=== PATIENT | female | born 1980 | race Caucasian/White ===

== ENCOUNTER 2016-05-04 10:23 | Inpatient (IN) | payer MEDICAID ==
[~2016-05-04] VITALS: Ht 157.5 cm; Wt 61.4 kg
--- NOTE | ~2016-05-04 | TXPLANREV ---
"PATIENT: RANCHO BROOKS N | | [facility] UNIT #: [id number] | [address] AGE/SEX: 35 F : 80 | [address] | [place] [address] ADMIT/REG DATE: 05/04/16 | ROOM: [facility] LOC: ADTC | ADTC | Treatment Plan/Staffing Review Date: 05/25/16 Treatment plan was reviewed and determined appropriate as written: yes, client is working on feelings letters, is to do more EMDR and will be starting on Relapse packet. Treatment plan was reviewed and the following changes/addition/deletions are necessary: Discharge plans were reviewed and determined appropriate as previously documented: Client was looking at 3 [facility] ([facility], [facility] and the [facility]). She did get interviewed for [facility] and was accepted which was her preferred placement so her referral will be to live at [facility] in and do aftercare counseling and group therapy with us ([facility]) following treatment. Discharge plans were reviewed and determined to be as follows: Other pertinent issues discussed during this staffing review include: Client is making progress, shows strong desire to stay clean/sober. Her S.O. and her are both getting clean/sober together which they both need to focus on their own recovery programs. She could benefit from 2 groups a week to create more structure in her early recovery. Staff Present: Phyllis Parrish, Lois Ford, Sherly Buchanan, Elsi Lugo, Naif Flaherty PRIMARY COUNSELOR: Shasha Fuller Client Signature Counselor Signature Date Time "
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
--- NOTE | ~2016-05-04 | INDIVTXPL2 ---
"PATIENT: RANCHO BROOKS N | | [facility] UNIT #: [id number] | [address] AGE/SEX: 35 F : 80 | [address] | [place] [id number] ADMIT/REG DATE: 05/04/16 | ROOM: [facility] LOC: ADTC | ADTC | Individualized Treatment Plan DATE: 05/11/16 Problem Statement/Issue Identified: Client continues to use alcohol or drugs despite ongoing negative consequences. Goal: Client is to learn about addiction, identifying consequences of her use and work a stronger AA/NA program of recovery. Objectives/Activities to achieve goal: 1. Client is to fill out Getting Started and Step 1 packets, identifying 15 values compromised from addiction. Share with counselor and share selected pages in group. Due Date: 05/20/16 Complete: Incomplete: 2. Client is to get and use a sponsor weekly while in treatment and following. Share progress with counselor. Due Date: ongoing Complete: Incomplete: 3. Client is to attend and share at AA/NA weekly, help chair a meeting and pick a topic that could benefit her. Share progress with counselor. Due Date: ongoing Complete: Incomplete: Client Signature Date Counselor Signaure: Date Outcome/Measurement of Progress Towards Goal: Counselor Signature: Date "
--- NOTE | ~2016-05-04 | INDIVTXPL2 ---
"PATIENT: RANCHO BROOKS | | [facility] UNIT #: [id number] | [address] AGE/SEX: 35 F : 80 | [address] | [place] [address] ADMIT/REG DATE: 05/04/16 | ROOM: [facility] LOC: ADTC | ADTC | Individualized Treatment Plan DATE: 05/19/16 Problem Statement/Issue Identified: Client needs to identify ways to improve self esteem to help maintain exterminator helper termite sobriety from all mood altering substances. Goal: Client is to improve her self-esteem t strengthen her recovery/sobriety. Objectives/Activities to achieve goal: 1. Client is to write down 10-20 good qualities she has and share with counselor. Due Date: 05/28/16 Complete: Incomplete: 2. Client is to interview 7 peers and 3 staff to name 2 good qualities they see in her and she is to write adding these on her list of good qualities. Share with counselor. Due Date: 05/28/16 Complete: Incomplete: Client Signature Date Counselor Signaure: Date Outcome/Measurement of Progress Towards Goal: Counselor Signature: Date "
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
--- NOTE | ~2016-05-04 | INDIVTXPL2 ---
"PATIENT: RANCHO BROOKS N | | [facility] UNIT #: [id number] | [address] AGE/SEX: 35 F : 80 | [address] | [place] [address] ADMIT/REG DATE: 05/04/16 | ROOM: [facility] LOC: ADTC | ADTC | Individualized Treatment Plan DATE: 05/11/16 Problem Statement/Issue Identified: Client is experiencing family & significant other discord and distancing as a result of past alcohol & drug usage. Goal: Client is to learn about effects of addiction on self/family/others and how to build healthier relationships/communication and make ammends with them. Objectives/Activities to achieve goal: 1. Client is to attend Family Educational Program and participate.See family notes. Due Date: 05/18/16 Complete: Incomplete: 2. Client is to write feelings letters to S.O., kids, grandparents, and mom. Share with group/family group. Due Date: 05/25/16 Complete: Incomplete: 3. Client is to have family session to work on family communication/sharing feelings. See Family Note. Due Date: 05/28/16 Complete: Incomplete: Client Signature Date Counselor Signaure: Date Outcome/Measurement of Progress Towards Goal: Counselor Signature: Date "
--- NOTE | ~2016-05-04 | INDIVTXPL2 ---
"PATIENT: RANCHO BROOKS N | | [facility] UNIT #: [id number] | [address] AGE/SEX: 35 F : 80 | [address] | [place] [address] ADMIT/REG DATE: 05/04/16 | ROOM: [facility] LOC: ADTC | ADTC | Individualized Treatment Plan DATE: 05/19/16 Problem Statement/Issue Identified: Client unresolved grief issues contributes to his/her continued drinking and using and needs to address these grief issues to avoid relapse. Goal: Client is to address grief issues to help avoid relapse. Objectives/Activities to achieve goal: 1. Client did attend Grief lecture at 1pm on 05/12/16 with Solution Architect. See class note. Due Date: 05/12/16 Complete: Incomplete: 2. Client is to fill out Grief packet, writing a grief letter to process feelings. Share with counselor. Due Date: 06/01/16 (or in aftercare) Complete: Incomplete: Client Signature Date Counselor Signaure: Date Outcome/Measurement of Progress Towards Goal: Counselor Signature: Date "
--- NOTE | ~2016-05-04 | TXPLANREV ---
"PATIENT: RANCHO BROOKS | | [facility] UNIT #: [id number] | [address] AGE/SEX: 35 F : 80 | [address] | [place] [address] ADMIT/REG DATE: 05/04/16 | [facility] | ADTC | Treatment Plan/Staffing Review Date: 05/19/16 Treatment plan was reviewed and determined appropriate as written: yes, client struggles with focussing on assignments and procrastination. Is to get step 1 done and feelings letters to daughter and S.O. Treatment plan was reviewed and the following changes/addition/deletions are necessary: Discharge plans were reviewed and determined appropriate as previously documented: Discharge plans were reviewed and determined to be as follows: Client discharges on 06/01/16, is [facility] to [facility], but appreciates support of her Fiance so will call the [facility] to see what contact is allowed. Also would consider [facility]. Other pertinent issues discussed during this staffing review include: Client does get involved in groups sharing and is asking to do EMDR on past trauma. Staff Present: Elizabeth Chambers, Phyllis Parrish, Jody Irby, Harriet Kahn, Elsi Lugo PRIMARY COUNSELOR: Shasha Fuller Client Signature Counselor Signature Date Time "
--- NOTE | 2016-05-04 13:47 | NUR ---
ADMISSION NOTE Rights/Responsibilities: Copy given and explained to client. Signed and accepted by client. Client oriented to physical lay out of the ADTC unit, given Big Book and admission packet. A Michele was assigned. Elizabeth Client is a 35yr old female. CSU staff brought her to mo where she has been for the past 5 days. Lives in [place], [place]. DOC meth, last used 04/18/16, gram daily. Allergies: Nubain, Meds: nurse has list. Family participation maybe. Was searched no contraband found. Initial paperwork given and guidelines gone over. Doctor has been notified.
--- NOTE | 2016-05-04 16:00 | NUR ---
RECOVERY 101 1 HR/ Clients learned about Fundamentals of recovery and tools from AA/NA. They participated by sharing what they hear at meetings that are important for their recovery like: working the steps, how to get and use sponsors, reading C.A.L. literature, service work, HP concept, opening up, slogans, using the Serenity Prayer, attending functions, what is closed and open meetings, etc.
--- NOTE | 2016-05-04 16:46 | NUR ---
IS .75 hr/ Did meet with client, oriented her to counseling and went over her initial treatment plan. Client shared she has had bad addiction and has severe mental health issues. She has 4 children, she has custody of 1 but just lost that when CPS stepped in and put her 14 year old daughter in foster home. She said it really upset set her and she used and went to detox, but due to opiates in December/Jan they didn't admit her, she continued to use and was EPC'ed and went to [facility]. She wants help for her addiction. She said she is on meds for hearing voices, depression and she has PTSD also. She has a man she has been in a relationship with for 1 year and he had 3 years clean but she was using and he relapsed 4 months ago. He has 2 days clean more than her currently. He wants to be supportive of her and her getting the kids back so is set up for a drug/alc evaluation. Client was shown the GS packet which is her first assignment.
--- NOTE | 2016-05-04 19:08 | NUR ---
Education 1HR: Clt attended lecture given by counselor on "Communication".
--- NOTE | 2016-05-04 22:42 | NUR ---
Tech note: Client participated in group by playing catch phrase. Client attended an onsite NA meeting. Her S/O came to the meeting. She gave her first intro, was checked her room and saw the DR. ZELAYA: entering treatment
--- NOTE | 2016-05-05 05:09 | NUR ---
Bed note : Client was motionless with eyes closed at all bed checks.
--- NOTE | 2016-05-05 11:30 | NUR ---
GROUP 1.5 HRS. 1:8 Client was oriented to purpose and rules of group. Client shared about past treatment attempts starting as a teenager due to probation. She indicated that she spent 1 1/2 years at [facility] starting with herself and then later moving into [facility] with her kids. She reports she was sober for 6 years at that time. She identified relapse triggers as isolation and pulling away from sponsor and program. She injured her back and was prescribed pain pills. She had also moved back to [place] and resumed using alcohol and marijuana. Group discussion included effects on loved ones and family/kids as well as relapse triggers and prevention.
--- NOTE | 2016-05-05 16:37 | NUR ---
Tech Note: Client watched video The [employer] and is working on Getting Started .
--- NOTE | 2016-05-05 17:17 | NUR ---
FAMILY CONTACT- GOT releases to enrollment counselor of her teenage kids and tried to call, left message asking if they can come to family program and need address.
--- NOTE | 2016-05-05 18:49 | NUR ---
Education: 1 Hour. Client attended presentation given by [facility] AIDS/STDS/HIV. HIV testing was available.
--- NOTE | 2016-05-05 20:17 | NUR ---
Relapse Prevention,04/03 1.0, Client attended and participated in relapse prevention education which focused on internal and external triggers.
--- NOTE | 2016-05-05 23:18 | NUR ---
Tech note: Client participated in rec by playing pictionary. Client went to guided meditation and attended an onsite AA meeting. Her S/O brought in more clothing for her. SE: Seeing an old friend
--- NOTE | 2016-05-06 05:34 | NUR ---
tech note: client was motionless in no distress at all bed checks.
--- NOTE | 2016-05-06 10:22 | NUR ---
Tech Notes: Client is working on Getting started
--- NOTE | 2016-05-06 11:30 | NUR ---
GROUP 1.5 HRS. 1:10 Clients oriented new peer to purpose and rules of group. Peers processed HOW TO GET STARTED IN TREATMENT and STEP 1 ASSIGNMENTS including compromising values and effects on others. This client fell asleep and apologized and stood up as directed. She related to female peer about IV drug use as both are encouraged to look at the similarities, not the differences.
--- NOTE | 2016-05-06 23:31 | NUR ---
Tech note:Client participated in rec-worked on beaded projects SE:PRESTON zhang
--- NOTE | 2016-05-06 23:41 | NUR ---
Education: 1 hour lecture on step 2 & 3 given by counselor
--- NOTE | 2016-05-07 04:41 | NUR ---
Bed note: client was in bed with eyes closed and no distress at all bed checks.
--- NOTE | 2016-05-07 08:55 | NUR ---
Tech Note: Client was redirected to take her medicaton as prescribed. Client stated that she plans to come to the tech station and take her early medication as soon as she wakes from now on.
--- NOTE | 2016-05-07 11:32 | HP ---
ADMIT: 05/04/2016 RM/LOC: [facility] MR#: [id number] [id number] [place], [place] [id number] [address] [place] [address] History and Physical SEX: F AGE: 35 : 1980 DATE OF SERVICE: CHIEF COMPLAINT: Drug addiction with drug use, out of control. CLINICAL HISTORY: The patient is a 35-year-old white female, admitted to the residential care program after being EPC'd from the [facility] to [facility] on 04/20/2016. The patient was high and depressed and was having thoughts of hurting herself. She was EPC'd on 04/20/2016. She then remained at [facility] for two days being transferred on 04/22/2016 to [facility]. She then spent a week at [facility]. On 04/29/2016, she was transferred to the [facility] and has been there for the past 5 days. She is admitted here today for treatment of her stimulant use disorder, severe; opioid use disorder, severe; cannabis use disorder, severe; and alcohol use disorder, mild. The patient has gone through treatment multiple times. She notes that she went to the [facility] program four times between the ages 13 and 16. She also notes that she has been to [facility] on two occasions, the first time in 2003 and the second time in 2011. She notes in 2013, she went to the [facility] in [place], but never finished the treatment program at that time and relapsed immediately. She does note that she did have one extended period of sobriety. She had six years clean from age 19 to 25. She notes that she was clean from 1999 through 2004, but then relapsed and has had no significant sobriety in the last 10 years. The patient notes that her drug of choice is either methamphetamine or cocaine. She notes that she actually prefers cocaine over meth, but cocaine is hard to find in [place]. She does note that she did smoke crack cocaine heavily for a year and a half to two years from age 27 to 28 while living in [place], but after moving back to [place], she has primarily been using methamphetamine because it is easier to get in a lot cheaper. She is a daily meth user, typically using a minimum of gram a day. Will use up to as much as an 8 ball a day if she has it. She prefers to either use it IV, snort it, or eat it. She will also smoke it when she needs to. She is a daily user of meth. Her second drug of choice she notes is opiates, but she has been trying to cut down on her use of opiates because of previous overdoses. She notes that she had a significant cardiopulmonary arrest in March of 2015 and had to be resuscitated. She notes that they use the paddles on her at that time. After overdosing on fentanyl patches, she notes that she would choose the fentanyl patches in ED, the gel off the patches and had a cardiopulmonary arrest. She notes that in the past she was going through as many as over 200 Lortab per month. In addition to the fentanyl patches, she notes she would use almost any opiates she could get off the street. She also was abusing Xanax for a period of time. In addition to her stimulant use and opioid use, she also smokes pot daily. She has been a daily pot user since age 13. Typically, smokes an 8th of an ounce a day. She notes that alcohol is probably her least favorite chemical. She will drink occasionally. Usually, will drink just a few drinks. Does not like to drink to intoxication, but may drink three or four drinks a night. At one time in the past, she did drink daily for a period of time, but currently is only drinking once or twice a month. As noted, she has gone through treatment on several previous occasions. She has had significant ADMIT: 05/04/2016 RM/LOC: A.511 [facility] MR#: [id number] [address] [facility] [address] [place] [id number] [address] [place] [address] History and Physical SEX: F AGE: 35 : 1980 legal problems as a result of her drug use. She has also had significant financial problems and is currently having interaction with CPS over custody of her 14-year-old daughter. She comes to treatment at this time after psychiatric stabilization at [facility]. As noted, she was EPC'd to [facility] on 04/[facility]/2016. PAST MEDICAL HISTORY: Recent hospitalizations. The patient was hospitalized in March of 2015 with opiate overdose. Had to be coded and resuscitated twice. She has had no other recent hospitalizations. She has been hospitalized for the of her four children. They are ages 17, 12, 14, and 10. Those were all normal vaginal deliveries. She does note that she had a tubal ligation at age 26 following the of her youngest child. She also had a lumpectomy for her left breast lump at age 19. She has had no other recent hospitalizations. She was hospitalized at age 26 after she had her initial seizure. She underwent extensive workup for seizure disorder at that time. No other hospitalizations or surgical procedures. CURRENT MEDICATIONS: These are medications that she has primarily been started on since being hospitalized for psychiatric stabilization. Her medications include: 1. Levothyroxine 25 mcg daily. 2. Magnesium oxide 400 mg daily. 3. Celexa 10 mg daily. 4. Potassium 10 mEq one daily. 5. Keppra 500 mg twice a day. 6. Gabapentin 400 mg three times a day. 7. Seroquel 25 mg at noon and 75 mg at bedtime. 8. Prazosin 1 mg at bedtime. 9. Hydroxyzine 50 mg every 6 hours p.r.n. anxiety. ALLERGIES: SHE HAS HAD PREVIOUS REACTION TO NUBAIN. MEDICAL ILLNESSES: Include: 1. History of chronic hepatitis C, diagnosed at age 19, has never been treated, still active. 2. Seizure disorder. 3. Hypothyroidism. 4. Tobacco use disorder in addition to her psychiatric diagnosis, which include bipolar disorder and chronic anxiety disorder. SOCIAL HISTORY: The patient is . She notes her of cancer in October of 2012. She is currently homeless and unemployed. She has no source of income. She has basically been staying with friends going from one drug house to another. She does mention a fiancee or significant other, whom she has been with for period of time. She notes that her 17-year-old and 12- year-old sons live with their paternal grandparents. Her 14-year-old daughter was just placed in Foster Care. Her 10-year-old daughter lives with her father. ADMIT: 05/04/2016 RM/LOC: [facility] MR#: [id number] [address] [id number] [address] [place] [address] History and Physical SEX: F AGE: 35 : 1980 FAMILY HISTORY: The patient notes she never knew her father. Mother will not tell who her father was. He apparently is a drug addict and a drug dealer in [place]. She has two younger half sisters. She notes her mother is a recovered meth addict and alcoholic. She notes that there is a strong history of drug addiction on both sides of her family from what she has been told. REVIEW OF SYSTEMS: CONSTITUTIONAL: No fever. No chills. No change in appetite. Weight is stable. HEENT: Does have some chronic periodontal disease and dental issues. PULMONARY: She is a smoker. Typically smokes at least a pack a day. Does have a chronic cough. CARDIAC: No chest pain or palpitations. GASTROINTESTINAL: History of hep C, untreated. No significant dyspepsia or indigestion. GENITOURINARY: No voiding symptoms. Menses are usually regular. She has had previous tubal ligation. MUSCULOSKELETAL: History of chronic back pain. Has been on chronic pain medications for her back. At one point, was taking both hydrocodone and using fentanyl patches from her family physician. NEUROLOGIC: History of seizure disorder. No recent seizures since being on Keppra. Remainder of her review of systems is negative. PHYSICAL EXAMINATION: VITAL SIGNS: Temp 97.8, pulse 78, respirations 20, and blood pressure 113/79. Height 5 feet 2 inches. Weight is 134 pounds. GENERAL: The patient is a 35-year-old white female, who appears her stated age. She is in no acute distress. She is oriented x3. HEENT: Reveals her ears to be clear. Pupils are equal and reactive. Sclerae nonicteric. Conjunctivae noninflamed. Oropharynx normal. Dentition is in poor repair. NECK: Supple. Thyroid not enlarged. No cervical adenopathy. LUNGS: At this time are clear. HEART: Regular rhythm without murmur. ABDOMEN: Soft and nontender. No masses or organomegaly. PELVIC: Not performed. BREASTS: Not performed. EXTREMITIES: Normal to gross exam. No peripheral edema. No clubbing or cyanosis. Full range of motion and mobility. NEUROLOGIC: She is intact with no focal deficit. Her balance and gait are normal. MENTAL STATUS EXAMINATION: She is pleasant and cooperative. Affect is appropriate. She has no bizarre ideation. She does admit to hallucination and hearing voices. She has had difficulty with psychosis in the past related to her heavy meth use. Does admit to recent suicidal ideation, but denies any suicidal thoughts now. Denies any significant depressive symptoms. She is ADMIT: 05/04/2016 RM/LOC: A.511 [facility] MR#: [id number] [address] [address] [address], [place] [address] History and Physical SEX: F AGE: 35 : 1980 oriented x3. Her memory appears to be intact. She is of average intelligence. Her insight is limited. Judgment is guarded. ASSESSMENT AT THE TIME OF ADMISSION: 1. Stimulant/methamphetamine/cocaine use disorder, severe. 2. Opioid use disorder, severe. 3. Cannabis use disorder, severe. 4. Tobacco use disorder, moderate. 5. Alcohol use disorder, mild. 6. Bipolar disorder. 7. Chronic anxiety disorder. 8. Chronic hepatitis C untreated. 9. Seizure disorder. PLAN: Plan is to admit the patient to the residential care program with a tentative discharge date of 06/01/2016. Upon completion of treatment, the patient needs to go to a [facility]. Will need the structure and support of a sober living community if she is going to maintain long-term sobriety. Raul Colon MD/ esthela JOB #: [id number] CC: Raul Colon, Attending Physician FAMILY PHYSICIAN, Family Physician
--- NOTE | 2016-05-07 11:39 | NUR ---
Medication Note: Client c/o pain in both knees rated at 5, prn ibuprphen administered.
--- NOTE | 2016-05-07 11:49 | NUR ---
Group 1.5hrs 1:10 Two new clients were orientated about group goals and rules. Feelings letters were shared and feedback was given by peers. Client shared about her experience in previous treatments. Student- Ida Suh
--- NOTE | 2016-05-07 14:21 | NUR ---
Education 1 Hour: Client heard a presentation on, "Marijuana."
--- NOTE | 2016-05-07 15:17 | NUR ---
Tech Note: Client participated in Spiritual Enrichment in the morning and walked in the halls for afternnon exercise. Client stated that she is working on, "How to Get Started in Treatment."
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
--- NOTE | 2016-05-07 16:42 | NUR ---
Education: 1hr Participated in Step 2 work group. Very involved in the group discussion.
--- NOTE | 2016-05-07 23:06 | NUR ---
Tech Note: Client participated in rec and attended A.A.Meeting.
--- NOTE | 2016-05-07 23:23 | NUR ---
Education Note: Client watched the healthy families video which lasted an hour.
--- NOTE | 2016-05-08 04:49 | NUR ---
Bed note: Client was in bed with eyes closed and no distress at all bed checks
--- NOTE | 2016-05-08 11:30 | NUR ---
Group 1.5hr/ 11:1 Clients all were attentive as peers shared GS packets and some shared how they relate. This client did give feedback and relate.
--- NOTE | 2016-05-08 14:35 | NUR ---
PEER REVIEWS 1 HR: Clt participated in peer review process and was able to give open and honest feedback to those receiving a review.
--- NOTE | 2016-05-08 16:33 | NUR ---
Tech Note: Client watched a video "How to Sabotage Your Treatment" and is working on Getting Started.
--- NOTE | 2016-05-08 23:55 | NUR ---
TECH NOTE: Client participated in guideline reading, watched tv/movies and attended optional off site AA meeting. Asked male peer to make phone call for her. SE:group
--- NOTE | 2016-05-09 04:48 | NUR ---
BED NOTE: Client was in bed, motionless with eyes closed all three bed checks.
--- NOTE | 2016-05-09 13:01 | NUR ---
Client was observed crying prior to an 11:30 Peer Review. Client asked tech to be excused and she was told to go to her room and she would be taken to lunch at 12:00. Tech did notify the Wednesday counselor and this decision was agreed with.
--- NOTE | 2016-05-09 16:24 | NUR ---
Tech Note: Client went to AA mtg at [facility] and [facility]. Is working on Getting Started. Client had visitors.
--- NOTE | 2016-05-09 20:06 | NUR ---
TECH NOTE: Client played Catch Phrase for REC, attended off site AA meeting, watched TV/movies SE: visitors
--- NOTE | 2016-05-10 04:50 | NUR ---
Bed Note: Clt lay motionless in bed with eyes closed showing no distress at all bed checks.
--- NOTE | 2016-05-10 09:38 | NUR ---
Tech Note: Client filled out Self-Care Checklist on Wednesday evening c/o hearing voices and requesting a higher dose of Zyprexa (currently on 5mg.). On Wednesday, at [facility], the client again c/o hearing voices and stated that she didn't think she could wait until Wednesday to see the nurse. Tech called nurse at 0930 with complaint. Nurse asked what voices were telling the client. Client claims that voices are telling her that she is "a piece of shit" and that she needs to leave treatment. Nurse directed tech to go over coping skills, with client, and report back in a few hours.
--- NOTE | 2016-05-10 11:17 | NUR ---
Tech Note: This tech sat down with clt at 1045 and we talked about coping skills for her anxiety. She said that she was practicing breathing techniques and talking to peers because if her mind is occupied she doesn't notice the voices as much. She agreed to continue using the coping skills but still wants to talk to medical personnel about increasing her Zyprexa. Clt also stated that the voices are NOT telling her to leave treatment.
--- NOTE | 2016-05-10 16:11 | NUR ---
Tech Note: Client participated in Big Book Study. Client stated that she is working on, "How to Get Started in Treatment." Client received a visitor.
--- NOTE | 2016-05-10 22:54 | NUR ---
TECH NOTE: Client attended AA panel, participated in community clean and watched tv/movies. in room in bed with lights out at shift change SE: visits
--- NOTE | 2016-05-11 04:25 | NUR ---
Bed Note: Clt lay motionless in bed with eyes closed showing no distress at all bed checks.
--- NOTE | 2016-05-11 10:18 | NUR ---
Tech notes: Client is working on BB
--- NOTE | 2016-05-11 11:30 | NUR ---
Morning Group, 03/25 ratio, 1.0 hours, Client attended and actively participated in group therapy. Client shared her step 1 along with how she felt about being in treatment and needing to be serious about her recovery.
--- NOTE | 2016-05-11 12:44 | NUR ---
Education Note: Client attended educational speaker Kit on Crossaddiction.
--- NOTE | 2016-05-11 14:00 | NUR ---
BIG GRP 5:21/ We had a big grp to confront sleeping pills being on the unit, dishonesties, and anything else going on that needed to be addressed. This client was attentive and did own that she made real coffee when found it in the kitchen.
--- NOTE | 2016-05-11 16:00 | NUR ---
RECOVERY 101 1 HR/ Clients all brought big books, were given highlighters and shown tools they can use in the big Book on: acceptance, 1/2measures, 12 promises, living in the solution-not the problem, resentments, 2 week prayer to forgiveness, etc. Clients took turns reading and some commented and asked questions.
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
--- NOTE | 2016-05-11 16:03 | NUR ---
FAMILY NOTE- DID call her S.O. and is to come to family program 05/14, he is attending meetings for himself. Will have family session 4:15pm 05/14.
--- NOTE | 2016-05-11 17:23 | NUR ---
IS 1 hr/ Did go over rest of her BPS and set up treatment planning for her. She was given step 1 to start on, did go over her GS packet and she is to share it in group. Client loved having visit with her daughter and wishes her kids could come to family program. Did call her S.O. and he plans to be here this , could bring grandma or sons if they can go. Her kids are all over age 12. Client talked about the med she is on she was on before only she is currently on a much lower dose so is starting to hear voices that interfere in her ability to focus, plus voices are negative/hurt her self-esteem. Did e-mail the nurse.
--- NOTE | 2016-05-11 18:22 | NUR ---
med note: client complained of headache pain level 6. motrin was given
--- NOTE | 2016-05-11 20:35 | NUR ---
Education: 1 hour lecture on feelings given by counselor
--- NOTE | 2016-05-11 23:46 | NUR ---
Tech Note: Client played a game for rec, and attended N.A.Meeting. SE: Her Fiance came for the N.A.Meeting
--- NOTE | 2016-05-12 04:02 | NUR ---
bed note: client was in bed with eyes closed and no distress at all bed checks.
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
--- NOTE | 2016-05-12 15:16 | NUR ---
Education Note: Client heard a presentation on, "Grief."
--- NOTE | 2016-05-12 16:29 | NUR ---
Tech Note: Client particiapted in light stretching for morning exercise and walked in the halls in the afternoon. Client stated that she is working on writing Feelings Letters and Step One.
--- NOTE | 2016-05-13 00:07 | NUR ---
Education: 1 hour lecture given by Counselor on Step 1
--- NOTE | 2016-05-13 00:23 | NUR ---
Tech note: client worked on projects for the alumni jose j for rec and attended AA meeting SE: Sharing in group
--- NOTE | 2016-05-13 04:17 | NUR ---
Bed Note: Clt lay motionless in bed with eyes closed showing no distress at all bed checks.
--- NOTE | 2016-05-13 10:31 | NUR ---
Tech Notes: Client is working on Step 1 and Fl's.
--- NOTE | 2016-05-13 13:03 | NUR ---
Group 1.5hours 1:11 Client brought up the topic of resentment for discussion. Client shared how she was having issues with resentments with her mother and the lack of relationship they have had throughout her life. Client shared how she was struggling to find a way to let go of her resentments toward her mother for the sake of her child. Student: Ida Buchanan BS [facility]
--- NOTE | 2016-05-13 19:24 | NUR ---
TECH NOTE: client c/o cold symptoms @ 1923,she was give a cough drop,tessalon perles & motrin 400 mg.
--- NOTE | 2016-05-13 23:16 | NUR ---
tech note: Client played a game for recreation & attended onsite NA meeting. Client left the NA meeting @ 2030 & came to the tech station complaining how hot the room was & she felt like she was having an anxiety attack. She talked briefly with the tech. It was suggested she get some ice water & go back to the meeting which she did. She later told tech that she got felt better after drinking some cold water. Client refused new med that was ordered for her until the RN explains to her why she needs to be on it. Client was complimented by peer for her sharing. SE: Group.
--- NOTE | 2016-05-14 02:19 | NUR ---
Education: 1 Hour. Client attended "Unresolved Anger" video & discussion presented by staff.
--- NOTE | 2016-05-14 04:59 | NUR ---
BED NOTE: Client was in bed motionless with eyes closed all three bed checks.
--- NOTE | 2016-05-14 11:30 | NUR ---
AM GRP 1.5 HRS, Ratio 1:12/ Clt offered lots of feedback to peers who were sharing about issues. She could relate to many and had to be asked to allow someone to speak at one point. Clt got up at 11, stating she had to go to the bathroom very badly and walked out of grp.
--- NOTE | 2016-05-14 12:55 | NUR ---
Tech Note: Client participated in Spiritual Enrichment. Client stated that she is working on Step One and writing Feelings Letters.
--- NOTE | 2016-05-14 13:09 | NUR ---
Education 1 Hour: Client heard a presentation from a member of the recovery community, who shared his experience, strength and hope.
--- NOTE | 2016-05-14 16:48 | NUR ---
FAMILY EDUCATION 3 HRS. Client was accompanied by her fiance. They took part in the discussion on the disease concept. Client shared chemical history and the consequences. Fiance identified himself as an addict also and has been clean 2 days longer than client. They were both tearful at times and shared about violence and client hearing voices.
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
--- NOTE | 2016-05-14 20:22 | NUR ---
Education 1HR: Clt watched video by Johnnie Arevalo on Step 5.
--- NOTE | 2016-05-14 22:38 | NUR ---
TECH NOTE: Client played Catch Phrase for REC, participated in Guided Meditation and attended onsite AA meeting. Was upset that a visitor came to the AA meeting because she does not like them SE: shared in AA
--- NOTE | 2016-05-15 04:28 | NUR ---
Bed Note: Clt lay motionless in bed with eyes closed showing no distress at all bed checks.
--- NOTE | 2016-05-15 10:52 | NUR ---
Tech Note: Client c/o stimuli that she felt could cause her to have a seizure. She mentioned lights being the most likely to trigger. Client was allowed to lay down in her room. After speaking with Nailer Hand (MARIE), I went to Family Practice and spoke to Dr. Cele Colon about client. Dr. Colon increased client's dosage of Keppra from 500 mg. BID to 1000 mg. BID. At 1050 hours I gave client a 500 mg dosage to bring total to 1000 mg. She will take again at 2100 hours.
--- NOTE | 2016-05-15 13:00 | NUR ---
PEER REVIEWS 1.25 HRS: Clt participated in peer reviews and took a risk to give open and honest feedback to those receiving a review.
--- NOTE | 2016-05-15 15:52 | NUR ---
Tech Note: Client watched a video "It Can't Happen To Me" and is working on Step 1 and Feelings Letters.
--- NOTE | 2016-05-15 22:45 | NUR ---
Tech note : Client watched tv, played games and talked on the phone. SE; Phone calls
--- NOTE | 2016-05-16 05:01 | NUR ---
Bed note: Client was in bed with eyes closed and no distress at all bed checks.
--- NOTE | 2016-05-16 15:15 | NUR ---
Tech Note: Client attended N.A.Panel and is working on FL's, and Big book.
--- NOTE | 2016-05-16 15:38 | NUR ---
Tech Note: Client attended N.A.Panel and is working on Step 1
--- NOTE | 2016-05-16 20:46 | NUR ---
tech note: client played game for recreation & attended offsite AA meeting. Client was late for recreation-walked past tech station @ 1841. Tech redirected her that she was late for recreation. Client talked on the phone & watched tv. SE: family.
--- NOTE | 2016-05-16 22:04 | NUR ---
tech note: client c/o achiness level 6 pain @ 2204,motrin 400 mg given.
--- NOTE | 2016-05-17 13:00 | NUR ---
PEER REVIEWS 1.25 HRS: Clt participated in peer reviews and took a risk to give open and honest feedback to those receiving a review.
--- NOTE | 2016-05-17 16:04 | NUR ---
Tech Note: Client is working on Step1 and FL's. She had a visitors.
--- NOTE | 2016-05-17 22:22 | NUR ---
Tech note: Participated in community clean, attended AA panel with Shaka Cortés and went to an onsite SHIP PILOT meeting. SE; Talk with son
--- NOTE | 2016-05-18 04:59 | NUR ---
Bed note: Client was in bed with eyes closed and no distress at all bed checks.
--- NOTE | 2016-05-18 11:30 | NUR ---
Experiential Group 1.5hr/ Clients all participated in Family Sculpturing by role-playing, relating and giving feedback. This client was involved and attentive.
--- NOTE | 2016-05-18 13:27 | NUR ---
Education note: Client attended education speaker Geeta on Tobacco.
--- NOTE | 2016-05-18 13:27 | NUR ---
Education note: Client attended education speaker Geeta on Tobacco.
--- NOTE | 2016-05-18 14:19 | NUR ---
Tech Note: client is working on Step 1 and Fl's.
--- NOTE | 2016-05-18 18:04 | NUR ---
Education: 1 Hour. Client attended "Forgiveness" lecture presented by staff.
--- NOTE | 2016-05-18 20:30 | NUR ---
FAMILY GROUP 6:1/ HR: Client, peers and attending family members heard one young female IOP client process FEELINGS LETTERS to each of her parents. The letters were well written and appeared to be sincere. Several peers related and shared specifics from their own experience. There were two moms here to support their children who also provided feedback. This client attended with her Significant Other who was very active in the group, talking about his own addiction and his own family who are still in active addiction. Client did share some about her children and efforts to get them back.
--- NOTE | 2016-05-18 23:16 | NUR ---
tech note: client attended Family Session. Client asked tech if her S/O could stay for awhile after they got out of Family-tech told her it would be ok. SE: Family.
--- NOTE | 2016-05-19 04:35 | NUR ---
tech note: client was motinless in no distress at all bed checks.
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
--- NOTE | 2016-05-19 14:00 | NUR ---
FAMILY EDUCATION 3 HRS Client attended family group with her SO. Client's SO shared his concern on how to handle a situation when it is getting out of control. Client shared that she did not have a very healthy relationship with her mother. Student: Ida Suh
--- NOTE | 2016-05-19 15:19 | NUR ---
IS 1 hr/ Client did have first 3 pages of step 1 done but is to get page 10-11 done soon so can write feelings letters by Wednesday to get feedback and to share Wednesday with family. She is to complete rest of step 1 after pg 10 -11 done and letters done. She will be required to miss recreation and spend time in Chap during study time/recreation time. Client admits she procrastinates and is distracted. She did report her meds were adjusted that she is no longer bothered by hearing voices. Client asked to do EMDR today but was told get step 1 done and letters, the will start EMDR. Did discuss other treatment planning.
--- NOTE | 2016-05-19 15:38 | NUR ---
Tech Note: Client attended programming on Relapse Prevention and is working on Feelings Letters and Step 1.
--- NOTE | 2016-05-19 16:28 | NUR ---
Relapse Prevention, 04/06 ration, 1.0 hours, Client attended and participated in relapse prevention education which focused on relapse triggers/issues.
--- NOTE | 2016-05-19 22:24 | NUR ---
TECH NOTE: Client attended Alumni meeting and on-site AA meeting. SE: AA meeting
--- NOTE | 2016-05-19 22:56 | NUR ---
EDUCATION NOTE: 1HR lecture on Shame given by counselor
--- NOTE | 2016-05-20 04:44 | NUR ---
Bed note: Client was in bed with eyes closed and no distress at all bed checks.
--- NOTE | 2016-05-20 10:08 | NUR ---
Tech note: Client is working on Step 1 and Fl's
--- NOTE | 2016-05-20 11:32 | NUR ---
RES GROUP 1.5 HRS. RATIO 03/24. Topics today were assignments shared, addiction itself, craving, and spirituality. This client shared her Step One and did a good job, being very tearful when sharing the things she had done in her addiction.
--- NOTE | 2016-05-20 12:46 | NUR ---
Education note: Client attended speaker Tono Barbosa
--- NOTE | 2016-05-20 16:02 | NUR ---
SPIRITUAL EDUCATION 1 HR. Topic today was on how addiction is a disease of body mind and spirit and how the Steps fit in treating the SPIRIT. We also talked about ways to spirituality, payoffs, and how spirituality is related to both addiction and recovery.
--- NOTE | 2016-05-20 18:17 | NUR ---
Education: 1 Hour. Client attended "Boundaries" lecture presented by staff.
--- NOTE | 2016-05-20 22:17 | NUR ---
Tech note : Client was instructed by counselor to work on step 1 instead of participating in rec. She attended an onsite NA meeting, her S/O was also there. SE: Finding out her S/O was not going to senior care.
--- NOTE | 2016-05-21 05:19 | NUR ---
tech note: client was motionless in no distress at all bed checks.
--- NOTE | 2016-05-21 11:42 | NUR ---
Group 1.5 Hr Ratio 1:9/Topics today were feelings letters and an anger and hurt assignment. A client also shared how her just say no assignment went Client shared a feelings letter to her daughter and did a good job. Client also shared how she could relate to peers sharing assignments.
--- NOTE | 2016-05-21 15:51 | NUR ---
Tech Note: Client went for an outdoor walk in the afternoon. Client stated that she is working on writing Feelings Letters and writing positive traits about herself.
--- NOTE | 2016-05-21 16:34 | NUR ---
Education 1 Hour: Client heard a presentaion on "Wellness in Recovery."
--- NOTE | 2016-05-21 16:55 | NUR ---
FAMILY EDUCATION 3 HRS Client attended family group and was joined by her daughter and visitation supervisor show operations. Client's daughter shared about how she wished her mother had tried to get help before she lost custody and that she was afraid of her mother dying. Client's daughter also shared how she feared ending up just like her mother. Student: Ida Suh
--- NOTE | 2016-05-21 23:07 | NUR ---
Tech note: Client worked on craft projects for the [employer] for rec and attended AA meeting SE:family
--- NOTE | 2016-05-22 00:11 | NUR ---
Education note: Clients watched a movie on "my attitude' by Kenneth Arce.
--- NOTE | 2016-05-22 04:54 | NUR ---
Bed note; client was motionlees, with eyes closed at all bed checks.
--- NOTE | 2016-05-22 14:15 | NUR ---
IS 1.25 hr/ Did orient to EMDR and saw video. Then did do EMDR relaxation. Did sign releases for [facility] and will set up interview Wednesday for [facility], client is to fill out applications for [facility] and [facility]. She is willing to do whatever is open, now that she knows can [facility].
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
--- NOTE | 2016-05-22 16:27 | NUR ---
Tech Note: Client went with group for outside walk and watched "Marijuana", by Orlando Arce, for education. Clt is working on Feelings Letters.
--- NOTE | 2016-05-22 23:49 | NUR ---
Tech Note: Client read guidelines with peers. Client attended A.A. SE: Meeting with counselor
--- NOTE | 2016-05-23 05:34 | NUR ---
Bed Note: Client was motionless with eyes closed at all bed checks.
--- NOTE | 2016-05-23 15:47 | NUR ---
Tech Note: Client working on Feelings Letters and had visitors.
--- NOTE | 2016-05-23 20:34 | NUR ---
Tech Note: Client played a game for rec. They also attended the A.A.Meeting at [facility] and [place]. SE: Visitation
--- NOTE | 2016-05-24 05:31 | NUR ---
Bed Note: Client was motionless with eyes closed at all bed checks.
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
--- NOTE | 2016-05-24 23:34 | NUR ---
Client attended A.A.Panel and helped with community clean. She had phone interview with the [facility] and was accepted. SE: Mallorie
--- NOTE | 2016-05-25 05:03 | NUR ---
Bed Note: Client was motionless with eyes closed at all bed checks.
--- NOTE | 2016-05-25 10:12 | NUR ---
Tech note: Client is working on Fl's
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
--- NOTE | 2016-05-25 14:38 | NUR ---
Education note: Client attended speaker for education Aldo Garcia
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
--- NOTE | 2016-05-25 17:00 | NUR ---
FAMILY EDUCATION 1 HR. Client's daughter arrived at 3 PM, after the FAMILY TRAP video. Client assisted her daughter in identifying family roles. Client and daughter then had family session with primary counselor as daughter is unable to stay for group.
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
--- NOTE | 2016-05-25 22:42 | NUR ---
TECH NOTE: Client participated in family. SE: family
--- NOTE | 2016-05-25 23:51 | NUR ---
tech note: Client c/o cold & flu symptoms @ 2104,motrin 400 mg & mucinex were given.
--- NOTE | 2016-05-25 23:58 | NUR ---
Education: 1 Hour. Client attended "Adult Children" presentation given by staff.
--- NOTE | 2016-05-26 05:24 | NUR ---
BED NOTE: Client was in bed, motionless with eyes closed all three bed checks.
--- NOTE | 2016-05-26 17:55 | NUR ---
Tech Note: Clt spent day in room, sick. Checked on 5 times. Meds taken, food brought and she felt better at days end.
--- NOTE | 2016-05-26 23:37 | NUR ---
Tech note: Client was in room all day
--- NOTE | 2016-05-27 04:14 | NUR ---
BED NOTE: Client was in bed, motionless with eyes closed all three bed checks.
--- NOTE | 2016-05-27 10:56 | NUR ---
Tech note: Client is working on Fl's
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
--- NOTE | 2016-05-27 13:15 | NUR ---
Education note: Client attended speaker Charly for education today.
--- NOTE | 2016-05-27 18:33 | NUR ---
SPIRITUaL EDUCATION 1 HR. Today we discussed difference between spirituality and jew, and then played a spiritual challenge game where group discussed thought provoking questions on spirituality and the meaning.
--- NOTE | 2016-05-27 22:42 | NUR ---
EDUCATION NOTE: 1 HR Counselor gave a lecture on Disease Concept
--- NOTE | 2016-05-27 23:50 | NUR ---
tech note: client played Pictionary for recreation & attended onsite NA mtg. Client's S/O was at the NA meeting. After the NA meeting client and her S/O were standing in the hallway and were redirected for inappropriate kissing and touching. Client was redirected twice by tech for inappropriate language. SE: EMDR.
--- NOTE | 2016-05-28 04:13 | NUR ---
BED NOTE: Client was in bed, motionless with eyes closed all three bed checks.
--- NOTE | 2016-05-28 08:40 | NUR ---
Medication Note: Client took mucinex andd ibuprophen for boody aches rated at 4.
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
--- NOTE | 2016-05-28 15:43 | NUR ---
Tech Note: Client participated in Spiritual Enrichment in the morning and went for an outdoor walk in the afternoon. Client stated that she is working on writing Feelings Letters and reading the Big Book.
--- NOTE | 2016-05-28 16:35 | NUR ---
Step ed./1 hr/ Focus was on step 7 "Humbly asked him to remove our shortcomings". Had them complete some questions on paper then discussed. This client participated.
--- NOTE | 2016-05-28 22:08 | NUR ---
EDUCATION NOTE 1HR: Recovery committee presented information on recovery
--- NOTE | 2016-05-28 22:12 | NUR ---
EDUCATION NOTE 1HR: Clients watched Orlando Arce video on Behavior
--- NOTE | 2016-05-28 22:40 | NUR ---
TECH NOTE: Client helped by doing crafts for the dance for REC, and attended AA meeting.
--- NOTE | 2016-05-29 04:41 | NUR ---
Bed note: client was in bed moitionless with eyes closed and no distress at all bed checks.
--- NOTE | 2016-05-29 12:51 | NUR ---
Group 1.5 Hr Ratio 1:11/Topics today were orientating a new member to group rules and goals and a couple getting started packets. Client shared how she could relate to what peers were sharing from assignments and issues.
--- NOTE | 2016-05-29 15:53 | NUR ---
PEER REVIEWS 1.25 HRS: Clt participated in peer reviews and took a risk to give open and honest feedback to those receiving a review. Client also had a review done on herself, client heard she needs to let her gaurd down, needs to focus on herself and not her fiance, that she worries about others instead of herself, needs to forgive herself, needs to work on past trauma. Client shared she felt glad, sad and afraid.
--- NOTE | 2016-05-29 16:16 | NUR ---
Tech Note: Client watched video (The Enablers) and is working on the Big Book and Feelings Letters.
--- NOTE | 2016-05-29 22:24 | NUR ---
Tech Note : Client worked crafts and projects for the dance. Client watched TV.
--- NOTE | 2016-05-30 04:38 | NUR ---
Bed note: Client was in bed with eyes closed and no distress at all bed checks.
--- NOTE | 2016-05-30 17:57 | NUR ---
Tech Note: Client attended N.A. Panel and is working on BB. Client had vist.
--- NOTE | 2016-05-30 19:11 | NUR ---
tech note: client attended offsite Alumni Dance.
--- NOTE | 2016-05-31 04:55 | NUR ---
BED NOTE: Client was in bed, motionless with eyes closed all three bed checks.
--- NOTE | 2016-05-31 16:59 | NUR ---
Tech Note: Client participated in Big Book Study in the morning and went for a walk in the afternoon. Client stated that she is working on reading the Big Book. Client received visitors.
--- NOTE | 2016-05-31 23:30 | NUR ---
tech note: Client attended AA Panel,ELEMENTARY EDUCATOR & participated in Community Clean. Client was redirected for being in the front lobby before the ELEMENTARY EDUCATOR meeting started. SE: DALI.
--- NOTE | 2016-06-01 04:24 | NUR ---
bed note: client was in bed with eyes closed and no distress at all bed checks.
--- NOTE | 2016-06-01 09:30 | NUR ---
IS 1 hr/ Client did do survey last week, did go over top 8 relapse triggers with counselor and will plan to finish the Relapse packet to go over with her aftercare counselor. She did write 2 feelings letters but still needs to write one to grandparents, plus may need to work on Vent letter and/or resentments with mother and sister and step-dad. Client asked to find help with rent $ and she was given # to [facility] and is to go to [facility]. She said her car doesn't work, she won't have $ for food first couple weeks, etc. 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 Did fill out her Continued Care Plan and gave her a copy of it, is to see Naif and start group this for [facility] and another next week for alc/drug. She was given a medallion and expressed great appreciation.
--- NOTE | 2016-06-01 10:12 | NUR ---
DISCHARGE NOTE Client was picker and sorter load and unload by s/o and all personal belongings were sent with. Discharge instructions gone over and copy given.
--- NOTE | 2016-07-09 10:17 | DS ---
ADMIT: 05/04/2016 RM/LOC: yT [facility] MR#: [id number] [facility]#: [id number] [address] [address] [address] [place] [address] General Discharge Summary SEX: F AGE: 35 : 1980 ADMISSION DATE: 05/04/2016 DISCHARGE DATE: 06/01/2016 ADMITTING DIAGNOSIS: As per history and physical. FINAL DIAGNOSES: 1. Stimulant/methamphetamine use disorder, severe. 2. Opioid use disorder, severe. 3. Cannabis use disorder, severe. 4. Alcohol use disorder, moderate. 5. Benzodiazepine/sedative use disorder, mild. 6. Bipolar disorder. 7. Chronic anxiety disorder. 8. Chronic hepatitis C, untreated. 9. Seizure disorder. 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 COMPLICATIONS: None. OPERATIONS: None. CLINICAL HISTORY: The patient is a 35-year-old white female, admitted to the residential care program after being EPC'd from the [facility] to [facility]. The patient was EPC'd on 04/20/2016. She initially was at [facility] from 04/20/2016 through 04/22/2016 then transferred to [facility] for continued psychiatric care. On 04/29/2016, she was transferred to the [facility] for continued detox and then admitted to the residential care program on 05/04/2016 for details of her pattern of usage and problems associated with her ongoing substance abuse and chemical dependency, please see the clinical history portion of the dictated history and physical. Please also see dictated history and physical for past medical history and pertinent physical exam findings. LABORATORY AND X-RAY SUMMARY FROM THIS ADMISSION: The patient did have a urinalysis performed on 05/18/2016, which was unremarkable and no evidence of infection, normal urinalysis. HOSPITAL COURSE: The patient was admitted to the residential care program and assigned for primary counselor, Shasha Fuller. She remained in treatment from 05/04/2016 through 06/01/2016. She was here on mental health board commitment. While in treatment, she participated in individual therapy and group therapy. She was also given the educational series on substance abuse and worked on many of these assignments throughout her stay at the treatment program. She attended the family education and family group sessions. Her daughter did come to the family program and family sessions. Her significant other also attended family programming and family sessions. While in treatment, she was accepting of her substance abuse problem and worked well with the staff in both individual and group sessions. She was able to complete step 1 of AA during this level of care. While in treatment. She was ADMIT: 05/04/2016 RM/LOC: Ty [facility] MR#: [id number] [address] [address] [facility] [place] [address] General Discharge Summary SEX: F AGE: 35 : 1980 able to successfully complete her residential treatment goals. She had a positive attitude towards treatment and gained a better understanding of the disease concept of addiction. She was able to recognize her powerlessness over alcohol and drugs. She benefitted from the family portion of the program and the work that she did with her daughter and her significant other. She did attend grief lectures, ran out of time to get any work done on the grief packet. She did start some EMDR therapy while in treatment to help deal with past trauma. She did work on improving her self-esteem and made good progress. While in treatment, she was able to get a sponsor and performed a relationship with this sponsor. She seemed actively be involved and participate in the AA meetings and liked and valued them. As noted, she ultimately completed her residential treatment goals and was felt to be ready for the next level of care. She was dismissed to outpatient treatment. She is going to continue her outpatient aftercare with Naif Flaherty here at the outpatient [facility] program doing weekly individual sessions as well as doing 2 groups per week. She is going to have 3 outpatient visits per week initially since she preferred to do outpatient rather than go to a custodial house. She did get accepted into the [facility] and is going to reside at the [address] [place] [address] and have active involvement with the outpatient program here at the [facility]. She is also going to attend 3 to 5 AA or NA meetings per week and maintain regular contact with her sponsor. She is also going to do ongoing mental health counseling for management of her psychotropic medications. DISCHARGE MEDICATIONS: Her medications at discharge were to include: 1. Levothyroxine 25 mcg daily. 2. Celexa 10 mg daily. 3. Magnesium oxide 400 mg daily. 4. Potassium 10 mEq daily. 5. Keppra 500 mg 2 tablets twice a day. 6. Gabapentin 400 mg t.i.d. 7. Zyprexa 10 mg at bedtime. 8. Prazosin 1 mg at bedtime. 9. Ditropan 5 mg b.i.d. 10.Benzac gel applied to her face once daily. 11.Cleocin topical solution applied to her face once daily. CONDITION AT DISCHARGE: Improved. PROGNOSIS: [place] to be good if she follows through on the extended 3/[address] [place] stay and remains actively engaged in her outpatient recovery program. Raul Colon MD/ kellyl JOB #: [id number] CC: Raul Colon MD, Attending Physician ADMIT: 05/04/2016 RM/LOC: A.509 [facility] MR#: [id number] [facility] [address] [address] [address] [place] [id number] General Discharge Summary SEX: F AGE: 35 : 1980 NO FAMILY PHYSICIAN, Family Physician
== END 2016-06-01 10:34 | disposition home or self-care (01) | DRG 895 ==
LOC: ADTC 10:23
PROVIDERS: ADMIT Family Medicine
PROC: HZ34ZZZ Individual Counseling for Substance Abuse Treatment, Interpersonal (ICD-10-PCS; principal; 2016-05-04)
PROC: HZ43ZZZ Group Counseling for Substance Abuse Treatment, 12-Step (ICD-10-PCS; principal; 2016-05-04)
PROC: HZ63ZZZ Family Counseling for Substance Abuse Treatment (ICD-10-PCS; principal; 2016-05-04)
DX: F15.20 Other stimulant dependence, uncomplicated (principal); F31.9 Bipolar disorder, unspecified; F11.20 Opioid dependence, uncomplicated; F19.259 Other psychoactive substance dependence with psychoactive substance-induced psychotic disorder, unspecified; F12.20 Cannabis dependence, uncomplicated; F14.21 Cocaine dependence, in remission; F41.9 Anxiety disorder, unspecified; B19.20 Unspecified viral hepatitis C without hepatic coma; G40.909 Epilepsy, unspecified, not intractable, without status epilepticus; E03.9 Hypothyroidism, unspecified; F10.20 Alcohol dependence, uncomplicated; F13.10 Sedative, hypnotic or anxiolytic abuse, uncomplicated; Z59.0 Homelessness; Z56.0 Unemployment, unspecified

== ENCOUNTER 2016-06-11 11:40 | Emergency (ER) | payer MEDICAID ==
--- NOTE | 2016-07-11 21:14 | ER ---
ADMIT: 06/11/2016 RM/LOC: ER [facility] MR#: [id number] [address] [place], [place] [address] [address] [place] [address] Emergency Room Report SEX: F AGE: 35 : 1980 DATE: 06/11/2016 A 35-year-old female, comes to the Emergency Department with spontaneous onset of left medial thigh pain. See T-sheet for history and physical. A D-dimer is pending at this time of dictation. My suspicion for DVT, PE is being low. The patient was diagnosed with leg pain. She described as a 1 to /10. Encouraged to use ibuprofen or Motrin or Tylenol for pain relief. Darshan Alvarez MD/ esthela JOB #: [id number] CC: Darshan Alvarez MD, Attending Physician
== END 2016-06-11 13:10 | disposition home or self-care (01) ==
LOC: ER 11:40
DX: M79.652 Pain in left thigh (principal); F32.9 Major depressive disorder, single episode, unspecified; F17.210 Nicotine dependence, cigarettes, uncomplicated